=== PATIENT | female | born 1930 | race Caucasian/White ===

== ENCOUNTER 2021-10-07 21:17 | Emergency (ER) | payer OTHER ==
[~2021-10-07] VITALS: Ht 170.2 cm; Wt 54.4 kg
[2021-10-07 21:27] VITALS: BP 110/62
--- NOTE | 2021-10-07 21:35 | NUR ---
DAUGHTER PAULA CALLED [phone] LOCAL
--- NOTE | 2021-10-07 21:45 | NUR ---
PT BROUGHT TO BED 13 VIA NAYELI YANEZ
--- NOTE | 2021-10-07 23:00 | NUR ---
PT SLEEPING . HOB SLIGHTLY ELEVATED. BLANKET PROVIDED
--- NOTE | 2021-10-08 | NUR ---
PT IS A 89 Y/O F BIBA AFTER A FALL AT ALF. PT DID NOT LOSE CONSCIOUSNESS. PT BASELINE IS A&O x1. PT INCURREDE A 3 CM LACERATION TO THE TOP OF HER LEFT HEAD. PT RESPONDS TO PAIN. PT HAS RANDOM EYE OPENING. PREVIOUS MED HX: DEMENTIA
--- NOTE | 2021-10-08 00:01 | NUR ---
CALLED PT DAUGHTER TO GIVE UPDATE. TOLD DAUGHTER WE ARE AWAITING RESULTS FROM CT. WILL UPDATE WHEN WE GET RESULTS.
--- NOTE | 2021-10-08 01:15 | NUR ---
DR LANGLEY AT BEDSIDE
--- NOTE | 2021-10-08 02:51 | NUR ---
Patient appears to be resting comfortably in bed. Vital Signs within normal limits. Respirations even and unlabored.
--- NOTE | 2021-10-08 06:58 | NUR ---
DAUGHTER PAULA CALLED REQUESTING TO BE INFORMED OF WHEN PT TRANSPORT HAS BEEN ARRANGED
--- NOTE | 2021-10-08 07:30 | NUR ---
REPORT RECEIVED FROM ESTELA BRICENO. PATIENT CONTINUITY OF CARE ASSUMED AT THIS TIME.
[2021-10-08 08:00] VITALS: BP 118/50
--- NOTE | 2021-10-08 10:24 | NUR ---
Patient appears to be resting comfortably in bed. Vital Signs within normal limits. Respirations even and unlabored.
== END 2021-10-08 10:55 | disposition home or self-care (01) ==
LOC: MED 21:17
DX: S01.01XA Laceration without foreign body of scalp, initial encounter (principal); F03.90 Unspecified dementia, unspecified severity, without behavioral disturbance, psychotic disturbance, mood disturbance, and anxiety; W19.XXXA Unspecified fall, initial encounter; Y93.89 Activity, other specified; Y92.89 Other specified places as the place of occurrence of the external cause; Y99.8 Other external cause status
CPT/HCPCS: 12001; 70450; 70486; 99285